=== PATIENT | female | born 1955 | race Caucasian/White ===

== ENCOUNTER 2024-02-16 16:05 | Emergency (ER) | payer OTHER ==
[2024-02-16 16:10] VITALS: BP 129/81; PULSE 84; RESP 16; TEMP 98.1; BMI 33.8
[2024-02-16] MEDS ORDERED: ACETAMINOPHEN 325 MG TABLET (FP) ONE (16:36)
[2024-02-16] MEDS ORDERED: DIPHTH,PERTUSS(ACELL),TET 0.5 ML DISP.SYRIN IM ONE (16:37)
[2024-02-16] MEDS: ACETAMINOPHEN 325 MG TABLET (FP) PO ONE (16:43)
[2024-02-16] MEDS: DIPHTH,PERTUSS(ACELL),TET 0.5 ML DISP.SYRIN IM ONE (16:58)
[2024-02-16 19:34] LABS: HIV INTERPRETATION NEGATIVE (NEGATIVE)
== END 2024-02-16 19:09 | disposition home or self-care (01) ==
LOC: FER 16:05
PROC: 3E0234Z Introduction of Serum, Toxoid and Vaccine into Muscle, Percutaneous Approach (ICD-10-PCS; principal; 2024-02-16)
DX: S62.647A Nondisplaced fracture of proximal phalanx of left little finger, initial encounter for closed fracture (principal); W01.0XXA Fall on same level from slipping, tripping and stumbling without subsequent striking against object, initial encounter; X50.1XXA Overexertion from prolonged static or awkward postures, initial encounter; Z23 Encounter for immunization
CPT/HCPCS: 36415; 73130-TC-LT-FY; 86803; 87389; 90715; 99284-25